=== PATIENT | male | born 1965 | race Hispanic/Latino ===

== ENCOUNTER 2021-06-14 18:46 | Emergency (ER) | payer SELFPAY ==
[~2021-06-14] VITALS: Ht 170.2 cm; Wt 68.0 kg
[~2021-06-14 18:46] MED LIST: GENTAMICIN SULF5 ML OS; KEFLEX500 M1 PO; LISINOPRIL20 M1 PO; METFORMIN500 MG PO; PROTONIX40 MG PO
[2021-06-14 19:15] LABS: HEMATOCRIT 34.3 % (39.0-50.0); HEMOGLOBIN 12.3 g/dl (14.0-18.0); IMMATURE GRANULOCYTES 0.3 % (0.0-5.0); MEAN CORPUSCULAR HGB 35.9 pG CALC (26.0-32.0); MEAN CORPUSCULAR HGB CONC 35.9 g/dL CAL (32.0-36.0); NEUT# 2.29 thou/uL (1.82-7.42); RED BLOOD COUNT 3.43 mill/uL (4.70-6.10); RED CELL DISTRI WIDTH 10.9 % (11.5-15.5)
[2021-06-14 19:43] LABS: ALBUMIN 3.6 g/dL (3.2-5.0); ALKALINE PHOSPHATASE 180 u/l (38-126); ANION GAP 15 (6-22 (CALC)); BILIRUBIN, TOTAL 0.4 mg/dL (0.0-1.4); BUN 8 mg/dL (9-20); BUN/CREATININE RATIO 12 (12-20 (CALC)); CARBON DIOXIDE 26 mmol/l (22-30); CHLORIDE 100 mmol/l (95-108); CREATININE 0.7 mg/dL (0.7-1.3); GFR > 60 ML/MIN (>=60 (CALC)); GFR FOR AFR.AMER. > 60 ML/MIN (>=60 (CALC)); POTASSIUM 4.1 mmol/l (3.5-5.1); SGOT/AST 62 u/l (17-59); SODIUM 136 mmol/l (137-146); TOTAL PROTEIN 6.8 g/dL (6.3-8.2)
[2021-06-14 20:07] LABS: ETHYL ALCOHOL 376 mg/dl (0-30)
[2021-06-15] MEDS ORDERED: METFORMIN HCL1000 MG PO (07:34)
[2021-06-15] MEDS ORDERED: CLONIDINE0.1 MG PO (09:37)
[2021-06-15 09:43] VITALS: BP 147/82
== END 2021-06-15 09:58 | disposition home or self-care (01) | DRG 897 ==
LOC: ED 18:46
PROVIDERS: Family Medicine
DX: F10.129 Alcohol abuse with intoxication, unspecified (principal); E11.9 Type 2 diabetes mellitus without complications; I10 Essential (primary) hypertension

== ENCOUNTER 2022-03-25 16:25 | Emergency (ER) | payer OTHER, BC ==
[~2022-03-25] VITALS: Ht 170.2 cm; Wt 66.0 kg
[~2022-03-25 16:25] MED LIST changes: +CLONIDINE0.1 MG PO; +METFORMIN HCL1000 MG PO
[2022-03-25] MEDS ORDERED: CEPHALEXIN500 MG PO (18:37)
[2022-03-25 19:15] VITALS: BP 147/90
== END 2022-03-25 19:45 | disposition home or self-care (01) | DRG 605 ==
LOC: ED 16:25
PROC: 0HQGXZZ Repair Left Hand Skin, External Approach (ICD-10-PCS; principal; 2022-03-25)
DX: S61.112A Laceration without foreign body of left thumb with damage to nail, initial encounter (principal); I10 Essential (primary) hypertension; E11.9 Type 2 diabetes mellitus without complications; F17.200 Nicotine dependence, unspecified, uncomplicated; W26.0XXA Contact with knife, initial encounter; Y93.G1 Activity, food preparation and clean up; Y92.89 Other specified places as the place of occurrence of the external cause; Y99.0 Civilian activity done for income or pay; Z79.84 Long term (current) use of oral hypoglycemic drugs

== ENCOUNTER 2022-04-03 10:14 | Emergency (ER) | payer OTHER ==
[~2022-04-03] VITALS: Ht 170.2 cm; Wt 66.3 kg
[~2022-04-03 10:14] MED LIST changes: +CEPHALEXIN500 MG PO
[2022-04-03 11:23] VITALS: BP 117/79
== END 2022-04-03 11:24 | disposition home or self-care (01) | DRG 950 ==
LOC: ED 10:14
DX: S61.412D Laceration without foreign body of left hand, subsequent encounter (principal); I10 Essential (primary) hypertension; E11.9 Type 2 diabetes mellitus without complications; F17.210 Nicotine dependence, cigarettes, uncomplicated; Z79.84 Long term (current) use of oral hypoglycemic drugs; X58.XXXD Exposure to other specified factors, subsequent encounter

== ENCOUNTER 2022-10-01 10:59 | Observation (INO) | payer BC ==
[2022-10-01] VITALS (37 sets, daily range): BP systolic 130–185; BP diastolic 71–115
[~2022-10-01] VITALS: Ht 170.2 cm; Wt 72.0 kg
[2022-10-01 11:37] LABS: BASO% 0.3 % (0-3); EOS% 0.8 % (0-8); HEMATOCRIT 41.2 % (39.0-50.0); HEMOGLOBIN 14.7 g/dl (14.0-18.0); IMMATURE GRANULOCYTES 0.1 % (0.0-5.0); LYMPH% 29.5 % (15-41); MEAN CORPUSCULAR HGB 33.4 pG CALC (26.0-32.0); MEAN CORPUSCULAR HGB CONC 35.7 g/dL CAL (32.0-36.0); MONO% 8.6 % (2-13); NEUT# 4.76 thou/uL (1.82-7.42); NEUT% 60.7 % (42-76); RED BLOOD COUNT 4.4 mill/uL (4.70-6.10); RED CELL DISTRI WIDTH 12.3 % (11.5-15.5)
[2022-10-01 11:44] LABS: MEAN CELL VOLUME 93.6 fL CALC (80.0-100.0)
[2022-10-01 11:48] LABS: ALBUMIN 4.6 g/dL (3.2-5.0); ALKALINE PHOSPHATASE 134 u/l (38-126); BILIRUBIN, TOTAL 0.6 mg/dL (0.0-1.4); BUN 9 mg/dL (9-20); BUN/CREATININE RATIO 12 (12-20 (CALC)); CHLORIDE 95 mmol/l (95-108); CREATININE 0.7 mg/dL (0.7-1.3); GFR FOR AFR.AMER. > 60 ML/MIN (>=60 (CALC)); GFR OTHER RACES > 60 ML/MIN (>=60 (CALC)); LIPASE 309 u/l (23-300); POTASSIUM 4.3 mmol/l (3.5-5.1); SODIUM 133 mmol/l (137-146); TOTAL PROTEIN 8.1 g/dL (6.3-8.2)
[2022-10-01 12:20] LABS: ANION GAP 18 (6-22 (CALC)); CARBON DIOXIDE 24 mmol/l (22-30); ETHYL ALCOHOL 358 mg/dl (0-30); SGOT/AST 130 u/l (17-59)
[2022-10-01 14:25] LABS: URINE BILIRUBIN - DIPSTICK NEGATIVE (NEGATIVE); URINE BLOOD DIPSTICK MODERATE (NEGATIVE); URINE COLOR YELLOW; URINE GLUCOSE - DIPSTICK >=1000 mg/dL (NEGATIVE); URINE KETONE TRACE mg/dL (NEGATIVE); URINE LEUK ESTERASE NEGATIVE (NEGATIVE); URINE PROTEIN - DIPSTICK 100 mg/dL (NEG-TRACE); URINE SPECIFIC GRAVITY 1.015; URINE UROBILINOGEN - DIPSTICK 0.2 E.U./dL (0.2)
[2022-10-01 14:28] LABS: URINE NITRITE - DIPSTICK NEGATIVE (Negative)
[2022-10-01 14:29] LABS: URINE EPITHELIAL CELLS FEW EPI/hpf (0-FEW)
[2022-10-01 14:30] LABS: URINE MUCUS FEW hpf (NONE-FEW)
[2022-10-02] VITALS: BP 137/71
[2022-10-02 04:18] VITALS: BP 141/79
[2022-10-02 05:42] LABS: HEMATOCRIT 35.5 % (39.0-50.0); HEMOGLOBIN 12.8 g/dl (14.0-18.0); MEAN CELL VOLUME 95.7 fL CALC (80.0-100.0); MEAN CORPUSCULAR HGB 34.5 pG CALC (26.0-32.0); MEAN CORPUSCULAR HGB CONC 36.1 g/dL CAL (32.0-36.0); RED BLOOD COUNT 3.71 mill/uL (4.70-6.10); RED CELL DISTRI WIDTH 12.5 % (11.5-15.5)
[2022-10-02 05:58] LABS: ALBUMIN 3.6 g/dL (3.2-5.0); ALKALINE PHOSPHATASE 149 u/l (38-126); ANION GAP 10 (6-22 (CALC)); BILIRUBIN, TOTAL 0.8 mg/dL (0.0-1.4); BUN 11 mg/dL (9-20); BUN/CREATININE RATIO 21 (12-20 (CALC)); CARBON DIOXIDE 27 mmol/l (22-30); CHLORIDE 102 mmol/l (95-108); CREATININE 0.5 mg/dL (0.7-1.3); GFR FOR AFR.AMER. > 60 ML/MIN (>=60 (CALC)); GFR OTHER RACES > 60 ML/MIN (>=60 (CALC)); MAGNESIUM 1.9 mg/dL (1.6-2.3); POTASSIUM 3.6 mmol/l (3.5-5.1); SGOT/AST 74 u/l (17-59); SODIUM 134 mmol/l (137-146); TOTAL PROTEIN 6.3 g/dL (6.3-8.2)
[2022-10-02 07:26] VITALS: BP 172/100
[2022-10-02] MEDS ORDERED: FOLIC ACID1 M1 PO (10:48)
[2022-10-02] MEDS ORDERED: VITAMIN B-1100 M1 PO (10:48)
[2022-10-02] MEDS ORDERED: LIBRIUM10 MG PO (10:49)
[2022-10-02] MEDS ORDERED: COZAAR25 MG PO (10:51)
[2022-10-02 11:24] VITALS: BP 175/93
== END 2022-10-02 17:29 | disposition home or self-care (01) | DRG 897 ==
LOC: ED 10:59 → ED-I 12:45 → ED 12:45 → ED-I 12:47 → ED 13:26 → ICU 13:27 → MS2 13:27 → ICU 15:33 → MS2 22:41
PROVIDERS: Family Medicine; ADMIT Internal Medicine; ATTEND Internal Medicine
DX: F10.229 Alcohol dependence with intoxication, unspecified (principal); Y90.8 Blood alcohol level of 240 mg/100 ml or more; I10 Essential (primary) hypertension; E11.9 Type 2 diabetes mellitus without complications; F17.200 Nicotine dependence, unspecified, uncomplicated; T46.5X6A Underdosing of other antihypertensive drugs, initial encounter; T38.3X6A Underdosing of insulin and oral hypoglycemic [antidiabetic] drugs, initial encounter; Z91.128 Patient's intentional underdosing of medication regimen for other reason; Z79.84 Long term (current) use of oral hypoglycemic drugs
CPT/HCPCS: G0378; J2060